=== PATIENT | male | born 1970 | race Caucasian/White ===

== ENCOUNTER 2018-04-06 07:02 | Emergency (ER) | payer BC ==
[2018-04-06 07:17] VITALS: BP 154/79
--- NOTE | 2018-04-06 07:19 | UC ---
Eye Complaint HPI - HPI Summary HPI Summary: The patient is a 47-year-old male with a 2 to three-day history of right eye irritation. He states he has had a foreign body sensation under his right eyelid. He denies any purulent discharge but has had some tearing. He denies any photophobia. He denies any URI symptoms. - History of Current Complaint Chief Complaint: UCEye Stated Complaint: EYE COMPLAINT Time Seen by Provider: 04/06/18 07:17 Hx Obtained From: Patient Onset/Duration: Gradual Onset, Lasting Days Timing: Constant Severity Initially: Mild Severity Currently: Moderate Pain Intensity: 0 Pain Scale Used: 0-10 Numeric Location of Injury: Conjunctiva, Eye Lid (upper) Character: Foreign Body Sensation Aggravating Factor(s): Nothing Alleviating Factor(s): Nothing Associated Signs And Symptoms: Positive: Drainage (Clear). Negative: Photophobia, Drainage (Purulent), Vision Impairment Bilateral, Vision Impairment Right, Vision Impairment Left, Fever, Swelling Eyes: 1 - area of uptake - Risk Factors Penetrating Injury Risk Factor: Negative Globe Rupture Risk Factors: Negative - Allergies/Home Medications Allergies/Adverse Reactions: Allergies Allergy/AdvReac Type Severity Reaction Status Date / Time No Known Allergies Allergy Verified 04/06/18 07:11 Home Medications: Home Medications metFORMIN* [Glucophage 500 MG TAB *] 500 mg PO DAILY 04/06/18 [History Confirmed 04/06/18] PMH/Surg Hx/FS Hx/Imm Hx Previously Healthy: Yes Endocrine History: Diabetes - "pre" Cardiovascular History: Hypertension, Other - Thoracic aortic disection - Surgical History Surgical History: Yes Surgery Procedure, Year, and Place: eye/lasik. AAA 06/19/14 - Family History Known Family History: Positive: Hypertension, Diabetes, Other - kidney stones - Social History Alcohol Use: Occasionally Substance Use Type: None Smoking Status (MU): Never Smoked Tobacco Review of Systems All Other Systems Reviewed And Are Negative: Yes Constitutional: Positive: Negative Skin: Positive: Negative Eyes: Positive: Negative ENT: Positive: Negative Respiratory: Positive: Negative Cardiovascular: Positive: Negative Gastrointestinal: Positive: Negative Genitourinary: Positive: Negative Motor: Positive: Negative Neurovascular: Positive: Negative Musculoskeletal: Positive: Negative Neurological: Positive: Negative Psychological: Positive: Negative Physical Exam Triage Information Reviewed: Yes Appearance: Well-Appearing, No Pain Distress, Well-Nourished Vital Signs: Initial Vital Signs Temp 99.1 F 04/06/18 07:12 Pulse 77 04/06/18 07:12 Resp 18 04/06/18 07:12 BP 154/79 04/06/18 07:12 Pulse Ox 97 04/06/18 07:12 Vital Signs Reviewed: Yes Eyes: Positive: Conjunctiva Clear, Other: - lid everted- no FB noted, EOMI/PERRL , area of uptake RIght corneal ENT: Positive: Hearing grossly normal, TMs normal. Negative: Nasal congestion, Nasal drainage, Tonsillar swelling, Tonsillar exudate, Trismus, Muffled voice, Dental tenderness Neck: Positive: Supple, Nontender, No Lymphadenopathy Respiratory: Positive: Lungs clear, Normal breath sounds, No respiratory distress, No accessory muscle use Cardiovascular: Positive: RRR, No Murmur Musculoskeletal: Positive: ROM Intact, No Edema Neurological: Positive: Alert Psychological Exam: Normal Skin Exam: Normal Eye Complaint Course/Dx - Course Course Of Treatment: patient advised to see eyedotter tomorrow - Differential Dx/Diagnosis Provider Diagnosis: Corneal abrasion, right Discharge - Sign-Out/Discharge Documenting (check all that apply): Patient Departure All imaging exams completed and their final reports reviewed: No Studies - Discharge Plan Condition: Stable Disposition: HOME Prescriptions: Polymyx/Trimethoprim OPTH* [Polytrim OPHTH*] 1 - 2 drop RIGHT EYE QID #1 btl Patient Education Materials: Corneal Abrasion (ED) Referrals: Mayur Hurley MD [Medical Doctor] - 1 Day Shea Wilde MD [Medical Doctor] - 1 Day Additional Instructions: you have a large corneal abrasion see an eyedotter tomorrow for reevaluation - Billing Disposition and Condition Condition: STABLE Disposition: Home
[2018-04-06] MEDS ORDERED: BSS OPTH.SOL* BTL ONE (07:20)
[2018-04-06] MEDS ORDERED: Tetracaine 0.5% OPTH.SOL 4 ML* 1 DROP BTL ONE (07:21)
[2018-04-06] MEDS ORDERED: Fluorescein Sodium TOPICAL* 1 MG TEST STRIP ONE (07:22)
[2018-04-06] MEDS ORDERED: Fluorescein Sodium TOPICAL* 1 MG TEST STRIP OPHTHALMIC ONE (07:35)
== END 2018-04-06 07:38 | disposition home or self-care (01) ==
LOC: UCCORT 07:02
DX: S05.01XA Injury of conjunctiva and corneal abrasion without foreign body, right eye, initial encounter (principal); X58.XXXA Exposure to other specified factors, initial encounter; Y92.9 Unspecified place or not applicable; R73.03 Prediabetes; Z79.84 Long term (current) use of oral hypoglycemic drugs; I10 Essential (primary) hypertension
CPT/HCPCS: 99212; A9270-GY; G0463